=== PATIENT | male | born 1990 | race Caucasian/White ===

== ENCOUNTER 2017-01-16 18:37 | Emergency (ER) | payer MEDICAID ==
[~2017-01-16] VITALS: Ht 188 cm; Wt 59.0 kg
--- NOTE | 2017-01-16 18:37 | NUR ---
Patient was BIB [facility] at this time.
[2017-01-16 18:41] VITALS: BP 145/64
--- NOTE | 2017-01-16 18:45 | NUR ---
PATIENT BIB [facility] FOR PRE-BOOK CLEARANCE . PT STATES HE IS WITHDRAWING FROM [place] AND STATES THE LAST TIME HE USED WAS YESTERDAY . DENIES N/V/D; SKIN IS PALE/WARM/MOIST; AAOX4 WITH EVEN AND STEADY GAIT; LUNGS CLEAR BL; HR EVEN AND REGULAR; PT DENIES ANY FEVER, CP, SOB, OR COUGH AT THIS TIME; PATIENT STATES PAIN OF 9/10 AT THIS TIME; VSS; PATIENT POSITIONED IN CHAIR, [facility] AT CHAIRSIDE. ER MD MADE AWARE OF PT STATUS.
--- NOTE | 2017-01-16 19:05 | NUR ---
GOT REPORT FROM [facility].
[2017-01-16] MEDS ORDERED: ACETAMINOPHEN EXTRA STRENGTH 500 MG TAB PO ONE (19:45)
[2017-01-16 20:07] VITALS: BP 132/70
--- NOTE | 2017-01-16 20:07 | NUR ---
PATIENT BIB [facility]. PATIENT EXAMINED BY DR. BENITEZ. PATIENT MEDICALLY CLEARED AND RELEASED IN CUSTODY IN STABLE CONDITION. ORIGINAL PRE-BOOK FORM GIVEN TO OFFICER JACOB.
== END 2017-01-16 20:07 ==
LOC: MED 18:37
DX: Z02.89 Encounter for other administrative examinations (principal); F11.10 Opioid abuse, uncomplicated
CPT/HCPCS: 71010; 99283